=== PATIENT | male | born 1965 | race Caucasian/White ===

== ENCOUNTER → 2018-06-22 | Outpatient (CLI) | payer OTHER ==
[~2018-06-22] MED LIST: ACETAMINOPHEN-1 EAC1 PO; KEFLEX500 MG PO
== END ==
LOC: M.RAD 15:09
DX: R05 Cough (principal)

== ENCOUNTER → 2019-07-26 | Outpatient (CLI) | payer OTHER | LOC: M.ULTRA 07:08 | DX: G45.9 Transient cerebral ischemic attack, unspecified (principal); R42 Dizziness and giddiness ==